=== PATIENT | female | born 1945 | race Caucasian/White ===

== ENCOUNTER 2018-06-26 11:28 | Outpatient (REF) | payer MEDICARE, BC, SELFPAY ==
[2018-06-26 20:36] LABS: BUN 20 mg/dL (7-18); Calcium 9.2 mg/dL (8.5-10.1); Chloride 103 mmol/L (98-107); Glucose 86 mg/dL (70-100); Potassium 4.4 mmol/L (3.5-5.1); Sodium 140 mmol/L (136-145)
== END 2018-06-26 11:48 ==
LOC: NCHCN 11:28
PROVIDERS: Visit Provider Family Medicine
DX: I10 Essential (primary) hypertension (principal)
CPT/HCPCS: 80048

== ENCOUNTER 2019-07-03 16:25 | Outpatient (REF) | payer MEDICARE, BC, SELFPAY ==
[2019-07-03 21:49] LABS: ALT 35 U/L (14-59); AST 19 U/L (15-37); Albumin 3.7 g/dL (3.4-5.0); Alkaline Phosphatase 65 U/L (46-116); Anion Gap 5.9 mmol/L (3-11); BUN 19 mg/dL (7-18); Bilirubin, Total 0.3 mg/dL (0.2-1.0); CO2 28.1 mmol/L (21.0-32.0); CREATININE 0.94 mg/dL (0.55-1.02); Calcium 9.2 mg/dL (8.5-10.1); Chloride 106 mmol/L (98-107); Estimated GFR 58.21 (mL/min/1.73m2); Glucose 91 mg/dL (70-100); Magnesium 2.2 mg/dL (1.8-2.4); Potassium 4.4 mmol/L (3.5-5.1); Sodium 140 mmol/L (136-145); Total Protein 6.3 g/dL (6.4-8.2)
[2019-07-04 06:21] LABS: Vitamin D 25 Total 17.3 ng/ml (30-100)
== END 2019-07-03 16:45 ==
LOC: NCHCN 16:25
PROVIDERS: Visit Provider Family Medicine
DX: I10 Essential (primary) hypertension (principal); E55.9 Vitamin D deficiency, unspecified; R25.2 Cramp and spasm
CPT/HCPCS: 80053; 82306; 83735

== ENCOUNTER 2019-09-06 10:39 | Outpatient (REF) | payer MEDICARE, BC, SELFPAY ==
[2019-09-06 21:30] LABS: CREATININE 0.79 mg/dL (0.55-1.02); Vitamin B12 1094 pg/mL (193-986)
[2019-09-09 06:17] LABS: Vitamin D 25 Total 32.9 ng/ml (30-100)
== END 2019-09-06 10:59 ==
LOC: NCHCN 10:39
PROVIDERS: Visit Provider Family Medicine
DX: E55.9 Vitamin D deficiency, unspecified (principal); R94.4 Abnormal results of kidney function studies; G62.9 Polyneuropathy, unspecified
CPT/HCPCS: 82306; 82565; 82607

== ENCOUNTER 2020-07-07 16:35 | Outpatient (REF) | payer MEDICARE, BC, SELFPAY ==
[2020-07-07 21:42] LABS: Anion Gap 5.7 mmol/L (3-11); BUN 20 mg/dL (7-18); CO2 28.3 mmol/L (21.0-32.0); CREATININE 0.88 mg/dL (0.55-1.02); Calcium 9.5 mg/dL (8.5-10.1); Calculated LDL 128 mg/dL (<100); Chloride 105 mmol/L (98-107); Cholesterol 227 mg/dL (<200); Glucose 84 mg/dL (74-106); HDL Cholesterol 73 mg/dL (40-60); Potassium 4.9 mmol/L (3.5-5.1); Sodium 139 mmol/L (136-145); Triglyceride 132 mg/dL (<150); Vitamin B12 1296 pg/mL (193-986)
== END 2020-07-07 16:55 ==
LOC: NCHCN 16:35
PROVIDERS: PCP Family Medicine; Visit Provider Family Medicine
DX: Z00.00 Encounter for general adult medical examination without abnormal findings (principal); I10 Essential (primary) hypertension; E55.9 Vitamin D deficiency, unspecified; G62.9 Polyneuropathy, unspecified
CPT/HCPCS: 80048; 80061; 82306; 82607

== ENCOUNTER 2020-12-03 20:13 | Outpatient (REF) | payer MEDICARE, BC, SELFPAY ==
[2020-12-05 14:36] LABS: COVID-19 RT-PCR UVMMC Result Negative (Negative)
== END 2020-12-03 20:14 | disposition home or self-care (01) ==
LOC: NCHCN 20:13
PROVIDERS: PCP Family Medicine; Visit Provider Nurse Practitioner Family
DX: Z20.822 Contact with and (suspected) exposure to COVID-19 (principal); R05 Cough
CPT/HCPCS: U0003; U0005

== ENCOUNTER 2021-07-09 13:18 | Outpatient (REF) | payer MEDICARE, BC, SELFPAY ==
[2021-07-09 21:32] LABS: ALT 27 U/L (14-59); AST 17 U/L (15-37); Albumin 3.6 g/dL (3.4-5.0); Alkaline Phosphatase 67 U/L (46-116); BUN 17 mg/dL (7-18); Bilirubin, Total 0.3 mg/dL (0.2-1.0); CREATININE 0.9 mg/dL (0.55-1.02); Calcium 9.4 mg/dL (8.5-10.1); Calculated LDL 121 mg/dL (<100); Chloride 105 mmol/L (98-107); Cholesterol 205 mg/dL (<200); Glucose 82 mg/dL (74-106); HDL Cholesterol 66 mg/dL (40-60); Potassium 4.8 mmol/L (3.5-5.1); Sodium 143 mmol/L (136-145); Total Protein 6.2 g/dL (6.4-8.2); Triglyceride 94 mg/dL (<150); Vitamin B12 1867 pg/mL (193-986)
[2021-07-09 22:10] LABS: Vitamin D 25 Total 46.7 ng/mL (30-100)
== END 2021-07-09 13:19 | disposition home or self-care (01) ==
LOC: NCHCN 13:18
PROVIDERS: PCP Family Medicine; Visit Provider Family Medicine
DX: E55.9 Vitamin D deficiency, unspecified (principal); E53.8 Deficiency of other specified B group vitamins; E66.3 Overweight
CPT/HCPCS: 80053; 80061; 82306; 82607

== ENCOUNTER 2022-02-23 14:22 | Outpatient (REF) | payer MEDICARE, SELFPAY ==
[2022-02-24 13:45] LABS: COVID-19 RT-PCR UVMMC Result Negative (Negative)
== END 2022-02-23 14:23 | disposition home or self-care (01) ==
LOC: NCHCN 14:22
PROVIDERS: PCP Family Medicine; Visit Provider Physician Assistant Medical
DX: Z20.822 Contact with and (suspected) exposure to COVID-19 (principal); R05.3 Chronic cough
CPT/HCPCS: U0003; U0005

== ENCOUNTER 2023-07-18 10:55 | Outpatient (REF) | payer MEDICARE, SELFPAY ==
[2023-07-19 11:19] LABS: BUN 18 mg/dL (7-18); CREATININE 0.9 mg/dL (0.55-1.02); Calcium 10.2 mg/dL (8.5-10.1); Calculated LDL 126 mg/dL (<100); Cholesterol 232 mg/dL (<200); Estimated GFR 65.44 (mL/min/1.73m2); Glucose 87 mg/dL (74-106); HDL Cholesterol 82 mg/dL (40-60); Total Protein 6.9 g/dL (6.4-8.2); Triglyceride 124 mg/dL (<150)
[2023-07-19 11:20] LABS: ALT 21 U/L (14-59); AST 25 U/L (15-37); Abs Immature Grans 0.01 10^3/uL (0.0-0.06); Absolute Basophil Count 0.06 10^3/uL (0.0-0.2); Absolute Eosinophil Count 0.12 10^3/uL (0.0-0.7); Absolute Monocyte Count 0.49 10^3/uL (0.1-0.8); Absolute Neutrophil Count 3.15 10^3/uL (1.2-6.7); Albumin 3.6 g/dL (3.4-5.0); Alkaline Phosphatase 74 U/L (46-116); Anion Gap 6.9 mmol/L (3-11); Bilirubin, Total 0.2 mg/dL (0.2-1.0); CO2 27.1 mmol/L (21.0-32.0); Chloride 106 mmol/L (98-107); HCT 40.1 % (36.0-46.0); HGB 12.7 g/dL (11.2-15.7); Immature Grans % 0.2; Lymphocytes % 37.5; MCH 28.2 pg (27.0-33.0); MCHC 31.7 % (32.0-36.0); MCV 89 fL (80-95); MPV 10.7 fL (8.0-11.0); Neutrophils % 51.3; Platelet Count 253 10^3/uL (130-400); RDW 13.6 % (11.7-14.6); RDW-SD 44.8 fL; Sodium 140 mmol/L (136-145); WBC 6.13 10^3/uL (4.4-10.8)
[2023-07-19 12:02] LABS: Vitamin D 25 Total 47.4 ng/mL (30-100)
== END 2023-07-18 10:56 | disposition home or self-care (01) ==
LOC: NCHCN 10:55
PROVIDERS: PCP Family Medicine; Visit Provider Family Medicine
DX: I10 Essential (primary) hypertension (principal); E55.9 Vitamin D deficiency, unspecified; E66.3 Overweight
CPT/HCPCS: 80053; 80061; 82306; 85025

== ENCOUNTER 2024-06-04 14:51 | Outpatient (REF) | payer MEDICARE, SELFPAY ==
[2024-06-04 15:12] LABS: HGB 11.3 g/dL (11.2-15.7); MCH 26.1 pg (27.0-33.0); MCHC 31.4 % (32.0-36.0); MCV 83 fL (80-95); MPV 10.7 fL (8.0-11.0); Platelet Count 230 10^3/uL (130-400); RBC 4.33 10^6/uL (3.93-5.22); RDW 14.7 % (11.7-14.6); RDW-SD 44.9 fL
[2024-06-04 15:55] LABS: Iron 46 ug/dL (50-170); Total Iron Binding Capacity 236 ug/dL (250-450); Transferrin Sat 19 % (15-50)
[2024-06-04 15:58] LABS: Ferritin 10 ng/mL (8-252); Folate 13.1 ng/mL (8.6-20.0); Vitamin B12 789 pg/mL (193-986)
== END 2024-06-04 14:52 | disposition home or self-care (01) ==
LOC: NCHCN 14:51
PROVIDERS: PCP Family Medicine; Visit Provider Family Medicine
DX: D64.9 Anemia, unspecified (principal)
CPT/HCPCS: 85027; 82607; 82728; 82746; 83540; 83550

== ENCOUNTER 2024-07-16 08:57 | Outpatient (REF) | payer MEDICARE, SELFPAY ==
[2024-07-16 14:33] LABS: HCT 38.9 % (36.0-46.0); HGB 11.9 g/dL (11.2-15.7); MCH 25.5 pg (27.0-33.0); MCHC 30.6 % (32.0-36.0); MCV 84 fL (80-95); MPV 10.8 fL (8.0-11.0); Platelet Count 249 10^3/uL (130-400); RBC 4.66 10^6/uL (3.93-5.22); RDW 14.9 % (11.7-14.6); RDW-SD 45.7 fL; WBC 4.79 10^3/uL (4.4-10.8)
[2024-07-16 15:28] LABS: ALT 21 U/L (14-59); AST 22 U/L (15-37); Albumin 3.4 g/dL (3.4-5.0); Alkaline Phosphatase 73 U/L (46-116); Anion Gap 5.5 mmol/L (3-11); BUN 14 mg/dL (7-18); CO2 28.5 mmol/L (21.0-32.0); CREATININE 0.9 mg/dL (0.55-1.02); Calcium 9.8 mg/dL (8.5-10.1); Calculated LDL 112 mg/dL (<100); Chloride 110 mmol/L (98-107); Cholesterol 205 mg/dL (<200); Estimated GFR 65.03 (mL/min/1.73m2); Glucose 90 mg/dL (74-106); HDL Cholesterol 77 mg/dL (40-60); Potassium 4.1 mmol/L (3.5-5.1); Sodium 144 mmol/L (136-145); Total Protein 6.7 g/dL (6.4-8.2); Triglyceride 80 mg/dL (<150)
== END 2024-07-16 08:58 | disposition home or self-care (01) ==
LOC: NCHCN 08:57
PROVIDERS: PCP Family Medicine; Visit Provider Family Medicine
DX: I10 Essential (primary) hypertension (principal); E55.9 Vitamin D deficiency, unspecified; D64.9 Anemia, unspecified
CPT/HCPCS: 80053; 80061; 82306; 85027

== ENCOUNTER 2024-11-11 15:34 | Outpatient (REF) | payer MEDICARE, SELFPAY ==
[2024-11-11 21:51] LABS: HCT 43.5 % (36.0-46.0); HGB 14.1 g/dL (11.2-15.7); MCHC 32.4 % (32.0-36.0); MCV 86 fL (80-95); Platelet Count 243 10^3/uL (130-400); RBC 5.04 10^6/uL (3.93-5.22); RDW 16.1 % (11.7-14.6); RDW-SD 51.6 fL; WBC 7.07 10^3/uL (4.4-10.8)
[2024-11-11 22:09] LABS: Iron 42 ug/dL (50-170); Total Iron Binding Capacity 209 ug/dL (250-450); Transferrin Sat 20 % (15-50)
[2024-11-11 22:18] LABS: Ferritin 17 ng/mL (8-252)
== END 2024-11-11 15:35 | disposition home or self-care (01) ==
LOC: NCHCN 15:34
PROVIDERS: PCP Family Medicine; Visit Provider Family Medicine
DX: D50.9 Iron deficiency anemia, unspecified (principal)
CPT/HCPCS: 85027; 82728; 83540; 83550

== ENCOUNTER → 2024-12-09 10:13 | Outpatient (BNVA) | payer MEDICARE, SELFPAY | PROVIDERS: PCP Family Medicine; Referring Provider Family Medicine; Visit Provider Student in an Organized Health Care Education/Training Program | DX: Z12.11 Encounter for screening for malignant neoplasm of colon (principal); Z86.0101 Personal history of adenomatous and serrated colon polyps ==

== ENCOUNTER 2024-12-20 09:51 | Day surgery (SDC) | payer MEDICARE, SELFPAY ==
[2024-12-20 09:54] VITALS: BP 165/105; PULSE 123; RESP 18; TEMP 36.5; O2SAT 96
[2024-12-20] MEDS: Lactated Ringers 1,000 ML 80 ML IV (10:18)
--- NOTE | 2024-12-20 10:27 | ANES.PREOP_ITS ---
General Info Date of Service Date Performed: 12/20/24 Height: 5 ft 10 in Weight: 85.4 kg Body Mass Index (BMI): 27.0 Surgical Procedure: Operation Date: 12/20/24 10:35 Proposed Procedure Side Surgeon p Colonoscopy Jovani Martinez MD Actual Procedure Side Surgeon p Colonoscopy Not Applicable Jovani Martinez MD Meds Allergies and Home Medications Allergies Allergy/AdvReac Type Severity Reaction Status Date / Time codeine Allergy Intermediate hives Verified 12/20/24 10:01 venom-wasp (Wasp Venom) Allergy Intermediate swelling Verified 12/20/24 10:01 Home Medication ?Medication ?Instructions ?Recorded clobetasol 0.05 % topical ointment 1 kaylynn topical HS #1 tube 12/31/13 hydrochlorothiazide 50 mg tablet 50 mg PO DAILY 12/31/13 metoprolol succinate 50 mg 50 mg PO DAILY 10/22/24 tablet,extended release 24 hr rivaroxaban 20 mg tablet (Xarelto) 20 mg PO DAILY 10/22/24 bisacodyl 5 mg tablet,delayed 5 mg PO ONCE Colonoscopy Bowel 12/09/24 release Prep #4 tabs ferrous sulfate 325 mg (65 mg 325 mg PO DAILY 12/09/24 iron) tablet polyethylene glycol 3350 17 238 g PO ONCE #238 grams 12/09/24 gram/dose oral powder Current Visit Medications: Current Medications Generic Name Dose Route Start Last Admin Trade Name Freq PRN Reason Stop Dose Admin Ringer's Solution 1,000 mls @ 80 mls/hr 12/20/24 06:00 12/20/24 10:18 IV 12/20/24 23:59 80 mls/hr INFUSION KITA Administration IV Miscellaneous Supplies 1 each 12/20/24 06:00 Iv Access IV 12/20/24 23:59 DIRECTED KITA Sodium Chloride 0 ml 12/20/24 06:00 Normal Saline Flush 10 Ml Syr IV 12/20/24 23:59 PRN PRN Sodium Chloride 0 ml 12/20/24 06:00 Normal Saline 10 Ml Vial IJ 12/20/24 23:59 DIRECTED PRN Sterile Water 0 ml 12/20/24 06:00 Water,Injection,Sterile 10 Ml Vial IJ 12/20/24 23:59 DIRECTED PRN [facility] Medical History Medical History Deviated nasal septum Heart murmur Essential hypertension Rosacea Vitamin D deficiency Idiopathic osteoarthritis Genuine stress incontinence, female Onychomycosis of toenail Arthritis of right hip Arthritis of both knees Atrial fibrillation Peripheral nerve disease Iron deficiency anemia Hyperlipidemia Hypertension Lichen sclerosus et atrophicus Surgical History Surgical History Hip fracture, right Cephalomedullary nail 2021 Right hip ORIF 03/15/22 Colonoscopy 2010 polyps with 5 yr f/u advised Tobacco Smoking/Tobacco Use Status: Former Tobacco Use Passive smoking exposure: No Alcohol Alcohol Intake: never Substance Use Substance use: Never Substance use type: does not use Vital Signs and Lab Results Vital Signs Most Recent Vital Signs in EMR: Most Recent Vital Signs Temp Pulse Resp BP Pulse Ox 36.5 C 123 H 18 165/105 H 96 12/20/24 09:54 12/20/24 09:54 12/20/24 09:54 12/20/24 09:54 12/20/24 09:54 Lab Results Blood Type / Crossmatch: No Data to Display Complete Blood Count: No Data to Display Complete Metabolic Panel: No Data to Display Liver Function Panel: No Data to Display Coagulation Panel: No Data to Display Cardiac Panel: No Data to Display Arterial Blood Gas: No Data to Display Venous Blood Gas: No Data to Display Pancreas Panel: No Data to Display Thyroid Panel: No Data to Display Infectious Disease: No Data to Display Blood Cultures: No Data to Display Toxicology Panel: No Data to Display Imaging and Studies Imaging and Studies Study information below may be from another EMR and interpreted by another provider. Please see original notes in EMR for more complete details. EKG Summary: 12/13/24: Sinus Rhythm with marked sinus arrthymia Anesthesia Assessment and Plan Anesthesia History Personal History: No History of Anesthesia Complications Family History: No Family History of Anesthesia Complications Exercise Tolerance Exercise Tolerance: Metabolic Equivalents>4 Cardiac & Pulmonary Exam Cardiac Exam: Heart Murmur Present Pulmonary Exam: Clear Bilateral Breath Sounds Implantable Cardiac Device Does patient have a Pacemaker or an ICD?: No Airway Exam Known Difficult Airway: No Mallampati Class: 2 Mouth Opening: Normal (> 3cm) Thyromental Distance: Greater than 3 cm Neck Range of Motion: Full ROM Neck Circumference: Normal Teeth Condition: Normal Dentition ASA Classification ASA Score: ASA 3 Emergency Case?: No NPO Status NPO Status: NPO Clears >2 hours, Solids >8 hours Anesthesia Plan Resuscitation Status: Full Code Anesthesia Technique: General Anesthesia Airway Planned: Natural Airway Monitors Used: Standard Monitors
[2024-12-20 10:37] VITALS: BMI 27.0
--- NOTE | 2024-12-20 10:56 | BOWEL_PTH ---
PATIENT: Cinda Baltazar LOC: [facility] U#:[id number] AGE/SX: 79/F ROOM: RE12/20/[address]: Jovani Martinez : 1945 BED: DIS: 12/20/2024 SPEC #: [id number] RECD: 12/20/24 12:57 STATUS: ONDINA REQ #: [id number] DINORAH: 12/20/24 10:[address]: Jovani Martinez DEPT: Surgical Specimen RECD BY: Heather Hicks ENTERED: 12/20/24 12:58 SP TYPE: Bowel OTHR DR: Ham Gonzalez Tissues: 1 - BIOPSY BOWEL Procedures: GROSS AND MICRO LEVEL 4 Comments: [id number]
[2024-12-20 11:06] VITALS: BP 118/84; PULSE 99; RESP 16; TEMP 36.5; O2SAT 97
--- NOTE | 2024-12-20 11:15 | W.COLOREPORT ---
Date of service: 12/20/24 Time of Service: 11:15 Colonoscopy Report Procedure Description: PROCEDURES PERFORMED: 1. Colonoscopy with cold forceps polypectomy x 4 PREOPERATIVE DIAGNOSIS: Surveillance colonoscopy, colon polyps POSTOPERATIVE DIAGNOSIS: Sigmoid diverticulosis, sigmoid fibrosis, colon polyp, grade 1 internal hemorrhoids SURGEON: Kd Martinez MD INDICATION FOR PROCEDURE: the patient is an 79-year-old woman who has a personal history of sessile serrated polyps. She is not having any symptoms of concern. Due for surveillance colonoscopy. FINDINGS: Terminal ileum was normal. A sessile, flat 2-3 mm polyp was removed from the cecum with cold forceps technique. She has significant sigmoid diverticulosis and there is significant fibrosis but no active stricture or active inflammation. Grade 1 internal hemorrhoids present. SURVEILLANCE interval/FOLLOW-UP: Considering her history and finding another right?sided sessile polyp today, I think repeating another colonoscopy in 3 years makes sense if her life expectancy remains good 3 years from now. She can discuss with her PCP. SPECIMENS: Yes EBL: Minimal COMPLICATIONS: None QUALITY of prep: Excellent Procedure in detail: The patient gave written consent and was in agreement with the indications, the potential risks as well as the benefits of the procedure. They were taken to the endoscopy suite and laid in the left lateral decubitus position. A timeout was performed and anesthesia was administered which was tolerated well. I started the procedure. Digital rectal and visual examination was performed and grossly within normal limits. A well-lubricated flexible colonoscope was then introduced and passed without any notable difficulty all the way to the cecum identified by the ileocecal valve and the appendiceal orifice. The terminal ileum was intubated and grossly within normal limits. The scope was then slowly withdrawn with the above-noted findings. The patient tolerated the procedure well and was taken to the PACU in hemodynamically stable condition.
--- NOTE | 2024-12-20 11:18 | W.PM.DSUDISC ---
Date of service: 12/20/24 Discharge Plan Disposition Patient Disposition: Home Condition: Good Discharge Details Attending Provider: Jovani Martinez Primary Care Provider: Ham Gonzalez Home Meds and New Rx's Prescriptions: No Action metoprolol succinate 50 mg tablet extended release 24 hr 50 mg PO DAILY Xarelto 20 mg tablet 20 mg PO DAILY Rx Instructions: must administer with evening meal ferrous sulfate 325 mg (65 mg iron) tablet 325 mg PO DAILY bisacodyl 5 mg tablet,delayed release (DR/EC) 5 mg PO ONCE Qty: 4 0RF Rx Instructions: Per Colonoscopy bowel prep instructions polyethylene glycol 3350 17 gram/dose powder 238 g PO ONCE Qty: 238 0RF Rx Instructions: For Colonoscopy bowel prep, as directed by office hydrochlorothiazide 50 MG tablet 50 mg PO DAILY clobetasol 60 GM ointment 1 kaylynn Topical HS Qty: 1 Rx Instructions: Apply sparingly to affected area's at night for 2 weeks then 1 or 2 times weekly Discharge Instructions Additional Instructions: FINDINGS: Another polyp was found and removed today. It is probably the same kind as the other ones have been. This is why we do the colonoscopies. It is nothing to worry about. Again seen was diverticular disease and hemorrhoid disease is present which is both very common, benign and nothing needs to be done about them as long as you do not have symptoms from them. You need to consider doing another colonoscopy 3 years from now but you should make that decision at that time as long as life is still going well and you are healthy. You can discuss with your PCP at that time. Activity:: Activity as Tolerated Diet:: As Tolerated
[2024-12-20 11:37] VITALS: BP 121/90; PULSE 90; RESP 16; TEMP 36.6; O2SAT 97
--- NOTE | 2024-12-20 12:41 | W.ANESPOSTOP ---
Postoperative Evaluation Date, Time and Location Date Performed: 12/20/24 Time Performed: 11:40 Patient Location: Day Surgery Unit Vital Signs Most Recent Imported Vital Signs: Most Recent Vital Signs Temp Pulse Resp BP Pulse Ox 36.6 C 90 16 121/90 97 12/20/24 11:37 12/20/24 11:37 12/20/24 11:37 12/20/24 11:37 12/20/24 11:37 Pain Score Most Recent Pain Score: Most Recent Pain Score Pain Level 0 12/20/24 11:37 Assessment Mental Status: Awake (Alert & Oriented to Patient Baseline) Airway and Respiratory Function: Patent airway with normal (patient baseline) respiratory exam Cardiovascular Function: Hemodynamically Stable Hydration Status: Adequately Hydrated Nausea & Vomiting: No Nausea or Vomiting Pain: Pt. Denies Any Pain Peripheral Nerve Block: Patient did not receive a nerve block
== END 2024-12-20 11:45 | disposition home or self-care (01) ==
PROVIDERS: PCP Family Medicine; Visit Provider Student in an Organized Health Care Education/Training Program
PROC: 0DJD8ZZ Inspection of Lower Intestinal Tract, Via Natural or Artificial Opening Endoscopic (ICD-10-PCS; CPT 45378; principal; 2024-12-20 10:30)
DX: Z12.11 Encounter for screening for malignant neoplasm of colon (principal); D12.0 Benign neoplasm of cecum; K57.30 Diverticulosis of large intestine without perforation or abscess without bleeding; K64.0 First degree hemorrhoids
CPT/HCPCS: 45380; 88305; J2003; J2704

== ENCOUNTER 2025-03-18 16:37 | Outpatient (REF) | payer MEDICARE, SELFPAY ==
[2025-03-18 16:13] LABS: HCT 43.3 % (36.0-46.0); HGB 14.3 g/dL (11.2-15.7); MCH 29.6 pg (27.0-33.0); MCHC 33.0 % (32.0-36.0); MCV 90 fL (80-95); MPV 11.2 fL (8.0-11.0); Platelet Count 216 10^3/uL (130-400); RBC 4.83 10^6/uL (3.93-5.22); RDW 13.6 % (11.7-14.6); RDW-SD 45.0 fL; WBC 5.73 10^3/uL (4.4-10.8)
[2025-03-18 16:44] LABS: Iron 144 ug/dL (50-170); Total Iron Binding Capacity 218 ug/dL (250-450); Transferrin Sat 66 % (15-50)
[2025-03-18 17:39] LABS: Ferritin 19 ng/mL (8-252)
== END 2025-03-18 16:38 | disposition home or self-care (01) ==
LOC: NCHCN 16:37
PROVIDERS: PCP Family Medicine; Visit Provider Family Medicine
DX: D50.9 Iron deficiency anemia, unspecified (principal)
CPT/HCPCS: 85027; 82728; 83540; 83550

== ENCOUNTER 2025-09-02 14:33 | Outpatient (REF) | payer MEDICARE, SELFPAY ==
[2025-09-02 21:35] LABS: HCT 46.0 % (36.0-46.0); HGB 14.7 g/dL (11.2-15.7); MCH 28.9 pg (27.0-33.0); MCHC 32.0 % (32.0-36.0); MCV 90 fL (80-95); MPV 10.9 fL (8.0-11.0); Platelet Count 279 10^3/uL (130-400); RBC 5.09 10^6/uL (3.93-5.22); RDW 13.0 % (11.7-14.6); RDW-SD 43.1 fL; WBC 6.82 10^3/uL (4.4-10.8)
[2025-09-02 21:54] LABS: Iron 30 ug/dL (50-170)
[2025-09-02 22:00] LABS: ALT 16 U/L (10-49); AST 21 U/L (<34); Albumin 4.2 g/dL (3.2-5.0); Alkaline Phosphatase 70 U/L (46-116); Anion Gap 6.4 mmol/L (3-11); BUN 16 mg/dL (9-23); Bilirubin, Total 0.4 mg/dL (0.2-1.2); CO2 28.6 mmol/L (20.0-31.0); Calcium 10.1 mg/dL (8.3-10.6); Chloride 107 mmol/L (98-107); Cholesterol 215 mg/dL (<200); Glucose 82 mg/dL (74-106); HDL Cholesterol 77 mg/dL (>or=50); Potassium 4.9 mmol/L (3.5-5.1); Sodium 142 mmol/L (136-145); Total Protein 6.9 g/dL (5.7-8.2)
[2025-09-02 22:27] LABS: Ferritin 11 ng/mL (7-271)
== END 2025-09-02 14:34 | disposition home or self-care (01) ==
LOC: NCHCN 14:33
PROVIDERS: PCP Family Medicine; Visit Provider Physician Assistant
DX: I50.9 Heart failure, unspecified (principal); D50.9 Iron deficiency anemia, unspecified; E78.5 Hyperlipidemia, unspecified
CPT/HCPCS: 80053; 80061; 85027; 82728; 83540